=== PATIENT | male | born 1945 | race Caucasian/White ===

== ENCOUNTER 2017-10-11 14:17 | Observation (INO) | payer BC, MEDICARE ==
[~2017-10-11] VITALS: Ht 177.8 cm; Wt 68.0 kg
[~2017-10-11 14:17] MED LIST: CHLO25CA PO; Z.0.NO CURRENT MEDS
[2017-10-11 14:19] VITALS: BP 134/72; PULSE 104; RESP 13; TEMP 98.3; O2SAT 95
[2017-10-11] MEDS ORDERED: CEPH-460 PO (14:32)
[2017-10-11] MEDS ORDERED: HYDR25TA5 PO (14:32)
[2017-10-11] MEDS ORDERED: OXYC1TAB63 PO (14:33)
[2017-10-11] MEDS ORDERED: SODIUM CHLORIDE 0.9% FLUSH 10 ML FLUSH IV FLUSH PRN (14:45)
[2017-10-11] MEDS ORDERED: SODIUM CHLOR 0.9% 1000 ML INJ 1,000 ML IV ONE (15:00)
--- NOTE | 2017-10-11 15:06 | PD ---
HPI Chief Complaint: General Weakness Time Seen by Provider: 14:30 Travel History International Travel<30 days: No Contact w/Intl Traveler<30days: No Traveled to known affect area: No History of Present Illness HPI 72-year-old male arrives with friends because he has been drinking alcohol every single day and not drinking enough fluids or eating enough solid food he reports to me that he has no pack a patient with actually drinking himself to however he states that he 72 years old and lives alone. He does not have a firearm available at home. Friends are concerned the patient may be ingesting sleeping medication excessively. Severity moderate. No modifying factor. Pt states he took percocet prior to arrival for chronic foot pain. PFSH Past Medical History Autoimmune Disease: Yes (rheumatic fever as child) Congestive Heart Failure: Yes Past Surgical History Abdominal Surgery: Yes (hernia) Appendectomy: Yes Other Surgery: Yes (collapsed lung) Social History Alcohol Use: Yes (daily 1/2 [place]) Tobacco Use: Yes (1 1/2 ppd) Substance Use: No Allergies-Medications (Allergen,Severity, Reaction): Coded Allergies: No Known Allergies (Unverified , 07/27/13) Reported Meds & Prescriptions Reported Meds & Active Scripts Active Reported Oxycodone-Acetaminophen 5-325 mg Tab Unknown Dose PO Q4H PRN Keflex (Cephalexin) 500 Mg Cap 500 Mg PO Q6H Hydrochlorothiazide 25 Mg Tab 25 Mg PO DAILY Review of Systems Except as stated in HPI: all other systems reviewed are Neg Physical Exam Narrative GENERAL: 72-year-old male well-nourished well-developed no acute distress SKIN: Focused skin assessment warm/dry. HEAD: Atraumatic. Normocephalic. EYES: Pupils equal and round. No scleral icterus. No injection or drainage. ENT: No nasal bleeding or discharge. Mucous membranes pink and moist. NECK: Trachea midline. No JVD. CARDIOVASCULAR: Regular rate and rhythm. No murmur appreciated. RESPIRATORY: No accessory muscle use. Clear to auscultation. Breath sounds equal bilaterally. GASTROINTESTINAL: Abdomen soft, non-tender, nondistended. Hepatic and splenic margins not palpable. MUSCULOSKELETAL: No obvious deformities. No clubbing. No cyanosis. Minimal edema about the feet bilaterally without asymmetry warmth or tenderness. NEUROLOGICAL: Awake and alert. No obvious cranial nerve deficits. Motor grossly within normal limits. Normal speech. The feet appear essentially unremarkable. PSYCHIATRIC: Patient's cooperative. He denies any plan to harm himself or harm others. Data Data Last Documented VS Vital Signs Date Time Temp Pulse Resp B/P (MAP) Pulse Ox O2 Delivery O2 Flow Rate FiO2 10/11/17 14:19 98.3 104 13 134/72 (92) 95 VS reviewed Orders Orders Complete Blood Count With Diff (10/11/17 14:32) Comprehensive Metabolic Panel (10/11/17 14:32) Lipase (10/11/17 14:32) Prothrombin Time / Inr (Pt) (10/11/17 14:32) Act Partial Throm Time (Ptt) (10/11/17 14:32) Iv Access Insert/Monitor (10/11/17:32) Ecg Monitoring (10/11/17 14:32) Oximetry (10/11/17 14:32) Sodium Chloride 0.9% Flush (Ns Flush) (10/11/17 14:45) Electrocardiogram (10/11/17 14:32) Alcohol (Ethanol) (10/11/17 14:32) Sodium Chlor 0.9% 1000 Ml Inj (Ns 1000 M (10/11/17 15:00) Drug Screen, Random Urine (10/11/17 15:29) Tylenol (Acetaminophen) (10/11/17 15:34) Psych Screen (10/11/17 16:27) Labs Laboratory Tests Test 10/11/17 15:00 10/11/17 16:10 White Blood Count 5.9 TH/MM3 Red Blood Count 3.59 MIL/MM3 Hemoglobin 13.8 GM/DL Hematocrit 38.8 % Mean Corpuscular Volume 108.0 FL Mean Corpuscular Hemoglobin 38.4 PG Mean Corpuscular Hemoglobin Concent 35.6 % Red Cell Distribution Width 14.2 % Platelet Count 120 TH/MM3 Mean Platelet Volume 9.4 FL Neutrophils (%) (Auto) 56.1 % Lymphocytes (%) (Auto) 35.2 % Monocytes (%) (Auto) 7.2 % Eosinophils (%) (Auto) 0.9 % Basophils (%) (Auto) 0.6 % Neutrophils # (Auto) 3.3 TH/MM3 Lymphocytes # (Auto) 2.1 TH/MM3 Monocytes # (Auto) 0.4 TH/MM3 Eosinophils # (Auto) 0.1 TH/MM3 Basophils # (Auto) 0.0 TH/MM3 CBC Comment DIFF FINAL Differential Comment Prothrombin Time 11.9 SEC Prothromb Time International Ratio 1.1 RATIO Activated Partial Thromboplast Time 30.0 SEC Blood Urea Nitrogen 12 MG/DL Creatinine 1.08 MG/DL Random Glucose 101 MG/DL Total Protein 8.0 GM/DL Albumin 3.2 GM/DL Calcium Level 8.4 MG/DL Alkaline Phosphatase 165 U/L Aspartate Amino Transf (AST/SGOT) 116 U/L Alanine Aminotransferase (ALT/SGPT) 44 U/L Total Bilirubin 2.5 MG/DL Sodium Level 135 MEQ/L Potassium Level 4.8 MEQ/L Chloride Level 97 MEQ/L Carbon Dioxide Level 24.4 MEQ/L Anion Gap 14 MEQ/L Estimat Glomerular Filtration Rate 68 ML/MIN Lipase 210 U/L Ethyl Alcohol Level 299 MG/DL Urine Opiates Screen NEG Urine Barbiturates Screen NEG Urine Amphetamines Screen NEG Urine Benzodiazepines Screen POS Urine Cocaine Screen NEG Urine Cannabinoids Screen NEG MDM Medical Decision Making Medical Screen Exam Complete: Yes Emergency Medical Condition: Yes Medical Record Reviewed: Yes Differential Diagnosis alcoholism, suicidal ideation, metabolic disarray Narrative Course CBC & BMP Diagram 10/11/17 15:00 Total Protein 8.0, Albumin 3.2 L, Calcium Level 8.4 L, Alkaline Phosphatase 165 H, Aspartate Amino Transf (AST/SGOT) 116 H, Alanine Aminotransferase (ALT/SGPT) 44, Total Bilirubin 2.5 H Alcohol levels 299 Urine drug screen is positive for benzodiazepines which is unlikely to help was depressed mood The patient may benefit from psychiatric screen and potentially admission for admission potentially here or at [facility]. He is medically clear. Diagnosis Primary Impression: Alcoholism /alcohol abuse Additional Impression: Depressed mood Americo Benson MD Oct 11, 2017 15:06
[2017-10-11 15:26] LABS: AUTOMATED NEUTROPHIL # 3.3 TH/MM3 (1.8-7.7); BASOPHIL % 0.6 % (0.0-2.0); EOSINOPHIL # 0.1 TH/MM3 (0-0.4); EOSINOPHIL % 0.9 % (0.0-4.0); HEMATOCRIT 38.8 % (39.0-51.0); HEMO FLAGS DIFF FINAL; LYMPH % 35.2 % (9.0-44.0); LYMPHOCYTE # 2.1 TH/MM3 (1.0-4.8); MEAN CORPUSCULAR HEMOGLOBIN 38.4 PG (27.0-34.0); MEAN CORPUSCULAR HGB CONC 35.6 % (32.0-36.0); MONO % 7.2 % (0.0-8.0); NEUT % 56.1 % (16.0-70.0); PLATELET COUNT 120 TH/MM3 (150-450); RED BLOOD COUNT 3.59 MIL/MM3 (4.50-5.90); RED CELL DISTRIBUTION WIDTH 14.2 % (11.6-17.2); WHITE BLOOD COUNT 5.9 TH/MM3 (4.0-11.0)
[2017-10-11 15:34] LABS: INTERNATIONAL NORMALIZED RATIO 1.1 RATIO; PROTHROMBIN TIME - PATIENT 11.9 SEC (9.8-11.6)
[2017-10-11 15:59] LABS: ALCOHOL 299 MG/DL (0-5); ALKALINE PHOSPHATASE 165 U/L (45-117); ALT (GPT) 44 U/L (12-78); ANION GAP 14 MEQ/L (5-15); AST (GOT) 116 U/L (15-37); BICARBONATE 24.4 MEQ/L (21.0-32.0); BLOOD UREA NITROGEN 12 MG/DL (7-18); CHLORIDE 97 MEQ/L (98-107); GLOMERULAR FILTRATION RATE 68 ML/MIN (>89); POTASSIUM 4.8 MEQ/L (3.5-5.1); SODIUM (NA) 135 MEQ/L (136-145); TOTAL BILIRUBIN ADULT 2.5 MG/DL (0.2-1.0)
[2017-10-11 20:00] VITALS: BP 122/70; PULSE 94; RESP 15; O2SAT 95
[2017-10-11] MEDS ORDERED: LORazepam 0.5 MG TAB PO ONE (20:00)
[2017-10-11 20:30] VITALS: BP 112/64; PULSE 76; RESP 15; O2SAT 95
[2017-10-11 21:00] VITALS: BP 110/60; PULSE 80; RESP 16; O2SAT 94
[2017-10-12] MEDS: LORazepam 0.5 MG TAB PO SCH ×5 (04:24→20:19)
[2017-10-12 08:43] VITALS: BP 131/59; PULSE 69; RESP 15; O2SAT 97
--- NOTE | 2017-10-12 12:12 | EKG ---
Date Performed: 10/11/2017 Time Performed: 14:55:02 PTAGE: 72 years EKG: Sinus rhythm BORDERLINE LEFT AXIS DEVIATION BORDERLINE ECG NO PREVIOUS TRACING DOCTOR: Mitch Man Interpretating Date/Time 10/12/2017 12:11:09
[2017-10-12] MEDS ORDERED: LORazepam 2 MG/ML VIAL IV PUSH PRN ×8 (12:15→13:00)
[2017-10-12] MEDS ORDERED: LORazepam 1 MG TAB PO PRN ×2 (12:15→13:00)
[2017-10-12] MEDS ORDERED: LORazepam 2 MG TAB PO PRN ×2 (12:15→13:00)
[2017-10-12] MEDS ORDERED: FLUMAZENIL 0.5 MG/5 ML VIAL IV PUSH PRN ×2 (12:15→13:00)
--- NOTE | 2017-10-12 12:17 | PD ---
Physical Exam Narrative Patient was seen by ED physician yesterday and psychiatric team this morning. Patient has history of EtOH abuse and withdrawal this morning. Patient complains of being shaky and and heart racing. Patient denies any headache. Patient denies any chest pain or shortness of breath. Patient denies abdominal pain. Patient denies any nausea vomiting diarrhea. Patient denies any history of DT in the past. Patient however has history of withdrawal in the past. Data Data Last Documented VS Vital Signs Date Time Temp Pulse Resp B/P (MAP) Pulse Ox O2 Delivery O2 Flow Rate FiO2 10/12/17 08:43 69 15 131/59 (83) 97 Nasal Cannula 2.00 10/11/17 14:19 98.3 Orders Orders Complete Blood Count With Diff (10/11/17 14:32) Comprehensive Metabolic Panel (10/11/17 14:32) Lipase (10/11/17 14:32) Prothrombin Time / Inr (Pt) (10/11/17 14:32) Act Partial Throm Time (Ptt) (10/11/17 14:32) Iv Access Insert/Monitor (10/11/17 14:32) Ecg Monitoring (10/11/17 14:32) Oximetry (10/11/17 14:32) Sodium Chloride 0.9% Flush (Ns Flush) (10/11/17 14:45) Electrocardiogram (10/11/17 14:32) Alcohol (Ethanol) (10/11/17 14:32) Sodium Chlor 0.9% 1000 Ml Inj (Ns 1000 M (10/11/17 15:00) Drug Screen, Random Urine (10/11/17 15:29) Tylenol (Acetaminophen) (10/11/17 15:34) Psych Screen (10/11/17 16:27) Lorazepam (Ativan) (10/11/17 20:00) Lorazepam (Ativan) (10/12/17 00:00) Diet Regular Basic (10/12/17 Lunch) Alcohol Withdrawal Asmt-Ciwa ONCE (10/12/17 12:12) Flumazenil Inj (Romazicon Inj) (10/12/17 12:15) Lorazepam (Ativan) (10/12/17 12:15) Lorazepam Inj (Ativan Inj) (10/12/17 12:15) Lorazepam (Ativan) (10/12/17 12:15) Lorazepam Inj (Ativan Inj) (10/12/17 12:15) Lorazepam Inj (Ativan Inj) (10/12/17 12:15) Lorazepam Inj (Ativan Inj) (10/12/17 12:15) Labs Laboratory Tests Test 10/11/17 15:00 10/11/17 16:10 White Blood Count 5.9 TH/MM3 Red Blood Count 3.59 MIL/MM3 Hemoglobin 13.8 GM/DL Hematocrit 38.8 % Mean Corpuscular Volume 108.0 FL Mean Corpuscular Hemoglobin 38.4 PG Mean Corpuscular Hemoglobin Concent 35.6 % Red Cell Distribution Width 14.2 % Platelet Count 120 TH/MM3 Mean Platelet Volume 9.4 FL Neutrophils (%) (Auto) 56.1 % Lymphocytes (%) (Auto) 35.2 % Monocytes (%) (Auto) 7.2 % Eosinophils (%) (Auto) 0.9 % Basophils (%) (Auto) 0.6 % Neutrophils # (Auto) 3.3 TH/MM3 Lymphocytes # (Auto) 2.1 TH/MM3 Monocytes # (Auto) 0.4 TH/MM3 Eosinophils # (Auto) 0.1 TH/MM3 Basophils # (Auto) 0.0 TH/MM3 CBC Comment DIFF FINAL Differential Comment Prothrombin Time 11.9 SEC Prothromb Time International Ratio 1.1 RATIO Activated Partial Thromboplast Time 30.0 SEC Blood Urea Nitrogen 12 MG/DL Creatinine 1.08 MG/DL Random Glucose 101 MG/DL Total Protein 8.0 GM/DL Albumin 3.2 GM/DL Calcium Level 8.4 MG/DL Alkaline Phosphatase 165 U/L Aspartate Amino Transf (AST/SGOT) 116 U/L Alanine Aminotransferase (ALT/SGPT) 44 U/L Total Bilirubin 2.5 MG/DL Sodium Level 135 MEQ/L Potassium Level 4.8 MEQ/L Chloride Level 97 MEQ/L Carbon Dioxide Level 24.4 MEQ/L Anion Gap 14 MEQ/L Estimat Glomerular Filtration Rate 68 ML/MIN Lipase 210 U/L Acetaminophen Level LESS THAN 2.0 MCG/ML Ethyl Alcohol Level 299 MG/DL Urine Opiates Screen NEG Urine Barbiturates Screen NEG Urine Amphetamines Screen NEG Urine Benzodiazepines Screen POS Urine Cocaine Screen NEG Urine Cannabinoids Screen NEG MDM Supervised Visit with [facility]: No Narrative Course 72-year-old male seen by ED physician yesterday and cleared by psychiatry team this morning. Patient has history of EtOH and in alkyl withdrawal. Patient will be admitted for observation and CIWA protocol started. Diagnosis Primary Impression: Alcoholism /alcohol abuse Additional Impressions: Depressed mood Alcohol withdrawal Qualified Codes: F10.230 - Alcohol dependence with withdrawal, uncomplicated Jorge Bernardo MD Oct 12, 2017 12:17
[2017-10-12 12:41] VITALS: BP 125/66; PULSE 82; RESP 18; O2SAT 97
[2017-10-12] MEDS ORDERED: SODIUM CHLORIDE 0.9% FLUSH 10 ML FLUSH IV FLUSH PRN (13:00)
--- NOTE | 2017-10-12 14:22 | HHI.HP ---
[facility] [place] Brayden Sarmiento M.D. Admission Diagnosis alcohol withdrawal Diagnoses: Travel History International Travel<30 Days: No Contact w/Intl Traveler <30 Da: No Traveled to Known Affected Are: No History of Present Illness 72-year-old male with a history of chronic alcoholism, tobacco abuse, hypertension, who presents with a 2 day history of tremors, poor balance. Says he drinks about 2 bottles of wine per day. They're apparently had been concerned that patient was intensely drinking himself to . Patient denies wanting to harm himself. Denies being suicidal. Per ER, has been evaluated by psychiatric team and not candidate for [place] act. Patient does have a history of possible withdrawal seizure in the past with head injury in 2012. Most recent drink was yesterday. Patient denies any fevers, chills, chest pain, shortness of breath, nausea, vomiting, lightheadedness, dizziness. He does report difficulty with balance, as well as tremors over the past 2 days. Review of Systems Except as stated in HPI: all other systems reviewed are Neg Past Family Social History Past Medical History Hypertension Alcoholism Past Surgical History Hernia surgery Appendectomy Reported Medications Reported Meds & Active Scripts Active Reported Oxycodone-Acetaminophen 5-325 mg Tab Unknown Dose PO Q4H PRN Keflex (Cephalexin) 500 Mg Cap 500 Mg PO Q6H Hydrochlorothiazide 25 Mg Tab 25 Mg PO DAILY Allergies: Coded Allergies: No Known Allergies (Unverified Allergy, Unknown, 10/12/17) Family History Patient reports father from heart attack at age 56. Mother secondary to stroke in her 70s. Social History Patient smokes one half pack per day since he was a teenager. Patient says he drinks 2 bottles of wine per day, however on ER history reports half a pint of vodka per day. He denies any illicit drugs. He says he lives by himself. Physical Exam Vital Signs Vital Signs Date Time Temp Pulse Resp B/P (MAP) Pulse Ox O2 Delivery O2 Flow Rate FiO2 10/12/17 12:41 82 18 125/66 (85) 97 Nasal Cannula 2.00 10/12/17 08:43 69 15 131/59 (83) 97 Nasal Cannula 2.00 10/11/17 21:00 80 16 110/60 (77) 94 Room Air 10/11/17 20:30 76 15 112/64 (80) 95 Room Air 10/11/17 20:00 94 15 122/70 (87) 95 Room Air 10/11/17 14:19 98.3 104 13 134/72 (92) 95 Physical Exam GENERAL: awake, tremulous. Oriented to year, not to month. Speech slow but clear SKIN: No rashes, ecchymoses or lesions. Cool and dry. HEAD: Atraumatic. Normocephalic. No temporal or scalp tenderness. EYES: Pupils equal round and reactive. Extraocular motions intact. No scleral icterus. No injection or drainage. ENT: Nose without bleeding, purulent drainage or septal hematoma. Throat without erythema, tonsillar hypertrophy or exudate. Uvula midline. Airway patent. NECK: Trachea midline. No JVD or lymphadenopathy. Supple, nontender, no meningeal signs. CARDIOVASCULAR: Regular rate and rhythm without murmurs, gallops, or rubs. RESPIRATORY: Clear to auscultation. Breath sounds equal bilaterally. No wheezes , rales, or rhonchi. GASTROINTESTINAL: Abdomen soft, non-tender, nondistended. No hepato-splenomegaly , or palpable masses. No guarding. MUSCULOSKELETAL: Extremities without clubbing, cyanosis. No joint tenderness, effusion. Plus bilateral lower extremity edema. A faint redness about toes. No broken skin. No calf tenderness. Negative Homans sign bilaterally. NEUROLOGICAL: Awake and alert. Cranial nerves II through XII intact. 5 strength bilateral upper and lower extremities. Ataxia Laboratory Laboratory Tests Test 10/11/17 15:00 10/11/17 16:10 White Blood Count 5.9 Red Blood Count 3.59 Hemoglobin 13.8 Hematocrit 38.8 Mean Corpuscular Volume 108.0 Mean Corpuscular Hemoglobin 38.4 Mean Corpuscular Hemoglobin Concent 35.6 Red Cell Distribution Width 14.2 Platelet Count 120 Mean Platelet Volume 9.4 Neutrophils (%) (Auto) 56.1 Lymphocytes (%) (Auto) 35.2 Monocytes (%) (Auto) 7.2 Eosinophils (%) (Auto) 0.9 Basophils (%) (Auto) 0.6 Neutrophils # (Auto) 3.3 Lymphocytes # (Auto) 2.1 Monocytes # (Auto) 0.4 Eosinophils # (Auto) 0.1 Basophils # (Auto) 0.0 CBC Comment DIFF FINAL Differential Comment Prothrombin Time 11.9 Prothromb Time International Ratio 1.1 Activated Partial Thromboplast Time 30.0 Blood Urea Nitrogen 12 Creatinine 1.08 Random Glucose 101 Total Protein 8.0 Albumin 3.2 Calcium Level 8.4 Alkaline Phosphatase 165 Aspartate Amino Transf (AST/SGOT) 116 Alanine Aminotransferase (ALT/SGPT) 44 Total Bilirubin 2.5 Sodium Level 135 Potassium Level 4.8 Chloride Level 97 Carbon Dioxide Level 24.4 Anion Gap 14 Estimat Glomerular Filtration Rate 68 Lipase 210 Acetaminophen Level LESS THAN 2.0 Ethyl Alcohol Level 299 Urine Opiates Screen NEG Urine Barbiturates Screen NEG Urine Amphetamines Screen NEG Urine Benzodiazepines Screen POS Urine Cocaine Screen NEG Urine Cannabinoids Screen NEG Result Diagram: 10/11/17 1500 10/11/17 1500 Caprini VTE Risk Assessment Caprini VTE Risk Assessment: Mod/High Risk (score >= 2) Caprini Risk Assessment Model Point Value = 1 Point Value = 2 Point Value = 3 Point Value = 5 Age 41-60 Minor surgery BMI > 25 kg/m2 Swollen legs Varicose veins or History of unexplained or recurrent spontaneous Oral contraceptives or hormone replacement Sepsis (< 1 month) Serious lung disease, including pneumonia (< 1 month) Abnormal pulmonary function Acute myocardial infarction Congestive heart failure (< 1 month) History of inflammatory bowel disease Medical patient at bed rest Age 61-74 Arthroscopic surgery Major open surgery (> 45 min) Laparoscopic surgery (> 45 min) Malignancy Confined to bed (> 72 hours) Immobilizing plaster cast Central venous access Age >= 75 History of VTE Family history of VTE Factor V Leiden Prothrombin [id number] Lupus anticoagulant Anticardiolipin antibodies Elevated serum homocysteine Heparin-induced thrombocytopenia Other congenital or acquired thrombophilia Stroke (< 1 month) Elective arthroplasty Hip, pelvis, or leg fracture Acute spinal cord injury (< 1 month) Prophylaxis Regimen Total Risk Factor Score Risk Level Prophylaxis Regimen 0-1 Low Early ambulation 2 Moderate Order ONE of the following: *Sequential Compression Device (SCD) *Heparin 5000 units SQ BID 3-4 Higher Order ONE of the following medications: *Heparin 5000 units SQ TID *Enoxaparin/Lovenox 40 mg SQ daily (WT < 150 kg, CrCl > 30 mL/min) *Enoxaparin/Lovenox 30 mg SQ daily (WT < 150 kg, CrCl > 10-29 mL/min) *Enoxaparin/Lovenox 30 mg SQ BID (WT < 150 kg, CrCl > 30 mL/min) AND/OR *Sequential Compression Device (SCD) 5 or more Highest Order ONE of the following medications: *Heparin 5000 units SQ TID (Preferred with Epidurals) *Enoxaparin/Lovenox 40 mg SQ daily (WT < 150 kg, CrCl > 30 mL/min) *Enoxaparin/Lovenox 30 mg SQ daily (WT < 150 kg, CrCl > 10-29 mL/min) *Enoxaparin/Lovenox 30 mg SQ BID (WT < 150 kg, CrCl > 30 mL/min) AND *Sequential Compression Device (SCD) Assessment and Plan Assessment and Plan //Acute alcohol withdrawal. -Tachycardic on admission, with marketed tremors on exam. History of possible seizure in the past. -Alcohol level CCXCIX on 10/11. -Check ammonia and B12. -We'll start CIWA protocol, Librium. Intake to monitor. If doing well, aVL discharge tomorrow morning. //Hypertension. Blood pressure appears acceptable. Hold off on blood pressure medications for now. Continue to monitor. //Patient with recent history of what appears to be bilateral lower extremity venous stasis cellulitis on Keflex. He says he completed his course of Keflex. No evidence of acute infection. We'll continue to monitor. //Transaminitis. AST 116, LT 44, alkaline phosphatase 165. Bilirubin 2.5 stable from previous. Likely secondary to chronic alcoholism. Alcohol cessation discussed. //From cytopenia. Platelets 120. Likely secondary to chronic alcoholic liver disease. No signs of bleeding. Continue to monitor. //Prophylaxis. SCDs. Discussed Condition With Patient, nurse, ED physician. Mino England MD Oct 12, 2017 14:22
[2017-10-12] MEDS ORDERED: THIAMINE HCL 100 MG TAB PO ONE (15:00)
[2017-10-12 16:23] VITALS: BP 111/60; PULSE 64; RESP 20; TEMP 97.9; O2SAT 95
[2017-10-12 20:13] VITALS: BP 119/68; PULSE 112; TEMP 98.7; O2SAT 94
[2017-10-12] MEDS: SODIUM CHLORIDE 0.9% FLUSH 10 ML FLUSH IV FLUSH SCH (20:19)
[2017-10-13 00:18] VITALS: BP 110/63; PULSE 92; RESP 16; TEMP 98.5; O2SAT 94
[2017-10-13] MEDS: LORazepam 0.5 MG TAB PO SCH ×2 (01:24→05:31)
[2017-10-13 04:19] VITALS: BP 111/66; PULSE 96; RESP 16; TEMP 98.4; O2SAT 93
[2017-10-13] MEDS ORDERED: BISACODYL 10 MG SUPP RECTAL PRN (07:45)
[2017-10-13] MEDS ORDERED: SENNOSIDES 8.6 MG TAB PO PRN (07:45)
[2017-10-13] MEDS ORDERED: MAGNESIUM HYDROXIDE SUSP 30 ML CUP PO PRN (07:45)
[2017-10-13] MEDS ORDERED: ONDANSETRON HCL 4 MG/2 ML VIAL IVP PRN (07:45)
[2017-10-13] MEDS ORDERED: LACTULOSE SYRUP 20 GM/30 ML CUP PO PRN (07:45)
[2017-10-13] MEDS ORDERED: ACETAMINOPHEN 325 MG TAB PO PRN (07:45)
[2017-10-13] MEDS ORDERED: NALOXONE HCL 0.4 MG/ML AMP IV PUSH PRN (07:45)
[2017-10-13] MEDS ORDERED: THIA100 PO (08:36)
--- NOTE | 2017-10-13 08:37 | HHI.DCPOC ---
Discharge Care Plan Diagnosis: (1) Alcohol withdrawal Goals to Promote Your Health * To prevent worsening of your condition and complications * To maintain your health at the optimal level Directions to Meet Your Goals Take your medications as prescribed Follow your dietary instruction Follow activity as directed Keep your appointments as scheduled Take your immunizations and boosters as scheduled If your symptoms worsen call your PCP, if no PCP go to Urgent Care Center or Emergency Room Smoking is Dangerous to Your Health. Avoid second hand smoke Call the 24-hour hour crisis hotline for domestic abuse at Annamaria Yates PA-C Oct 13, 2017 8:37 am
[2017-10-13 08:40] VITALS: BP 119/65; PULSE 89; RESP 16; TEMP 98.1; O2SAT 95
[2017-10-13 08:49] VITALS: O2SAT 95
[2017-10-13] MEDS ORDERED: LACTULOSE SYRUP 20 GM/30 ML CUP PO SCH (09:00)
[2017-10-13] MEDS ORDERED: MULTIVITAMINS/MINERALS THERAPEUTIC TAB PO SCH (09:00)
[2017-10-13] MEDS ORDERED: FOLIC ACID 1 MG TAB PO SCH (09:00)
[2017-10-13] MEDS: SODIUM CHLORIDE 0.9% FLUSH 10 ML FLUSH IV FLUSH SCH (09:01)
[2017-10-13] MEDS ORDERED: CHLO10CA5 PO (09:51)
[2017-10-13] MEDS ORDERED: Lactulose Liq PO (09:51)
--- NOTE | 2017-10-13 14:38 | HHI.PR ---
Subjective Remarks Follow-up alcohol withdrawal. States he is doing okay on Librium. Denies withdrawal symptoms. States he will follow-up with alcohol detox program outpatient. He has been counseled regarding alcohol cessation and Librium discussed with RN Objective Vitals Vital Signs Date Time Temp Pulse Resp B/P (MAP) Pulse Ox O2 Delivery O2 Flow Rate FiO2 10/13/17 08:49 95 21 10/13/17 08:40 98.1 89 16 119/65 (83) 95 10/13/17 04:19 98.4 96 16 111/66 (81) 93 10/13/17 00:18 98.5 92 16 110/63 (79) 94 10/12/17 20:13 98.7 112 119/68 (85) 94 10/12/17 16:23 97.9 64 20 111/60 (77) 95 I/O 10/12/17 10/12/17 10/12/17 10/13/17 10/13/17 10/13/17 07:00 15:00 23:00 07:00 15:00 23:00 Intake Total 450 ml Output Total 450 ml Balance -450 ml 450 ml Intake Oral 450 ml Output Urine Total 450 ml # Voids 1 # Bowel Movements 1 Result Diagram: 10/11/17 1500 10/11/17 1500 Objective Remarks GENERAL: Well-developed, well-nourished in no distress SKIN: Warm and dry. HEAD: Atraumatic. Normocephalic. EYES: Pupils equal and round. No scleral icterus. No injection or drainage. ENT: No nasal bleeding or discharge. Mucous membranes pink and moist. NECK: Trachea midline. No JVD. CARDIOVASCULAR: Regular rate and rhythm. RESPIRATORY: No accessory muscle use. Clear to auscultation. Breath sounds equal bilaterally. GASTROINTESTINAL: Abdomen soft, non-tender, nondistended. MUSCULOSKELETAL: Extremities without clubbing, cyanosis, or edema. No obvious deformities. NEUROLOGICAL: Awake and alert. No obvious cranial nerve deficits. Motor grossly within normal limits. Five out of 5 muscle strength in the arms and legs. Normal speech. No tremors PSYCHIATRIC: Appropriate mood and affect; insight and judgment normal. Procedures None A/P Problem List: (1) Alcohol withdrawal ICD Code: F10.239 - Alcohol dependence with withdrawal, unspecified Assessment and Plan Acute alcohol withdrawal. Improved on Librium will taper. CIWA protocol. Counseled regarding alcohol use. Outpatient follow-up Elevated ammonia. Start lactulose Hypertension. Blood pressure appears acceptable. Hold off on blood pressure medications for now. Continue to monitor. Patient with recent history of what appears to be bilateral lower extremity venous stasis cellulitis on Keflex. No evidence of acute infection. We'll continue to monitor. Transaminitis. AST 116, LT 44, alkaline phosphatase 165. Bilirubin 2.5 stable from previous. Likely secondary to chronic alcoholism. Alcohol cessation discussed. Thrombocytopenia. Platelets 120. Likely secondary to chronic alcoholic liver disease. No signs of bleeding. Continue to monitor. DVT prophylaxis, patient ambulatory Discharge Planning Discharge patient to home Condition on discharge: Improved Regular Diet as tolerated Ad Greer activity no driving Rx written: Librium, thiamine and lactulose Follow-up with primary care physician Praveen Thomason MD Oct 13, 2017 14:38
[2017-10-16] MEDS ORDERED: THIAMINE HCL 100 MG TAB PO SCH (09:00)
== END 2017-10-13 11:53 | disposition home or self-care (01) ==
LOC: NEPE 14:17 → NEDA 10-12 12:54 → NEPGCP 10-12 14:01
PROVIDERS: ADMIT Internal Medicine; ATTEND Internal Medicine
DX: F10.230 Alcohol dependence with withdrawal, uncomplicated (principal); R53.1 Weakness; M79.673 Pain in unspecified foot; G89.29 Other chronic pain; I11.0 Hypertensive heart disease with heart failure; I50.9 Heart failure, unspecified; K70.9 Alcoholic liver disease, unspecified; R74.0 Nonspecific elevation of levels of transaminase and lactic acid dehydrogenase [LDH]; R00.0 Tachycardia, unspecified; F17.200 Nicotine dependence, unspecified, uncomplicated; Z79.899 Other long term (current) drug therapy; F32.9 Major depressive disorder, single episode, unspecified
CPT/HCPCS: 80053; 80307; 82140; 82607; 82948; 83690; 85025; 85610; 85730; 93005; 96361; 96374; 97163; 99285; G0378; G8987; G8988; J2060; J7030